=== PATIENT | female | born 1990 | race African-American/Black ===

== ENCOUNTER 2016-11-06 20:08 | Emergency (ER) | payer MEDICAID ==
[2016-11-06 20:52] VITALS: BP 101/61
--- NOTE | 2016-11-06 21:34 | UC ---
Complaint Female HPI - HPI Summary HPI Summary: Vulvar itching, burning, redness, swelling starting 2 days ago. Feels like yeast infections she has had in the past. Denies fever or abd pain. Was treated for chlamydia 3 weeks ago, partner also treated, but has had sex since then. Would like testing to confirm cure. Does not want a pelvic exam tonight if possible. - History Of Current Complaint Chief Complaint: UCGU Stated Complaint: POSS UTI & PERSONAL Time Seen by Provider: 11/06/16 21:21 Hx Obtained From: Patient Hx Last Menstrual Period: 11/01/16 ?: No Onset/Duration: Gradual Onset, Lasting Days Timing: Constant Severity Initially: Mild Severity Currently: Moderate Character: Burning Aggravating Factor(s): Movement, Urination Associated Signs And Symptoms: Positive: Vaginal Discharge - Allergies/Home Medications Allergies/Adverse Reactions: Allergies Allergy/AdvReac Type Severity Reaction Status Date / Time No Known Allergies Allergy Verified 11/06/16 20:52 PMH/Surg Hx/FS Hx/Imm Hx Endocrine History Of: Denies: Diabetes, Thyroid Disease Cardiovascular History Of: Denies: Cardiac Disorders, Hypertension Respiratory History Of: Denies: COPD, Asthma GI/ History Of: Denies: Ulcer Psychological History Of: Reports: Anxiety, Depression - Surgical History Surgical History: None - Family History Known Family History: Negative: Blood Disorder - Social History Alcohol Use: Occasionally Substance Use Type: None Smoking Status (MU): Light Every Day Tobacco Smoker Amount Used/How Often: 1/2ppd - Immunization History Most Recent Influenza Vaccination: 12/18/12 Most Recent Tetanus Shot: 12/31/12 Review of Systems Constitutional: Negative Skin: Negative Eyes: Negative ENT: Negative Respiratory: Negative Cardiovascular: Negative Gastrointestinal: Negative Genitourinary: Other - vulvar itching Motor: Negative Neurovascular: Negative Musculoskeletal: Negative Neurological: Negative Psychological: Negative All Other Systems Reviewed And Are Negative: Yes Physical Exam Triage Information Reviewed: Yes Appearance: Well-Appearing, No Pain Distress, Well-Nourished Vital Signs: Initial Vital Signs Temp 99.1 F 11/06/16 20:48 Pulse 85 11/06/16 20:48 Resp 16 11/06/16 20:48 BP 101/61 11/06/16 20:48 Pulse Ox 100 11/06/16 20:48 Vital Signs Reviewed: Yes Eye Exam: Normal Eyes: Positive: Conjunctiva Clear ENT Exam: Normal ENT: Positive: Normal ENT inspection, Hearing grossly normal, Pharynx normal, TMs normal Dental Exam: Normal Neck exam: Normal Neck: Positive: Supple, Nontender, No Lymphadenopathy Respiratory Exam: Normal Respiratory: Positive: Chest non-tender, Lungs clear, Normal breath sounds, No respiratory distress, No accessory muscle use Cardiovascular Exam: Normal Cardiovascular: Positive: RRR, No Murmur Abdomen Description: Positive: Nontender, No Organomegaly, Soft. Negative: CVA Tenderness (R), CVA Tenderness (L) Musculoskeletal Exam: Normal Neurological Exam: Normal Psychological Exam: Normal Skin Exam: Normal Complaint Female Dx - Differential Dx/Diagnosis Provider Diagnoses: vaginitis, likely yeast. chlamydia exposure Discharge - Discharge Plan Condition: Stable Disposition: HOME Prescriptions: Fluconazole 150 MG (NF) [Diflucan 150 mg (NF)] 150 mg PO ONCE #2 tab Patient Education Materials: Vulvovaginal Candidiasis (ED), Sexually Transmitted Diseases (ED) Referrals: Ade Jones MD [Primary Care Provider] -
== END 2016-11-06 21:55 | disposition home or self-care (01) ==
LOC: UCEAST 20:08
DX: N76.0 Acute vaginitis (principal); Z20.2 Contact with and (suspected) exposure to infections with a predominantly sexual mode of transmission; F41.9 Anxiety disorder, unspecified; F32.9 Major depressive disorder, single episode, unspecified; F17.210 Nicotine dependence, cigarettes, uncomplicated
CPT/HCPCS: 81003; 87491; 87591; 99211; G0463

== ENCOUNTER 2016-12-24 17:20 | Emergency (ER) | payer OTHER ==
[2016-12-24 19:25] LABS: Hematocrit 40 % (35-47); Hemoglobin 13.1 g/dl (12.0-16.0); Mean Corpuscular HGB Conc 33 g/dl (31-36); Mean Corpuscular Hemoglobin 30 pg (27-31); Mean Corpuscular Volume 90 fL (80-97); Mean Platelet Volume 9 um3 (7.4-10.4); Red Blood Count 4.41 10^6/ul (4.0-5.4); Red Cell Distribution Width 14 % (10.5-15); White Blood Count 9.4 10^3/ul (3.5-10.8)
[2016-12-24 19:41] LABS: Albumin 4.4 g/dL (3.2-5.2); Calcium 9.3 mg/dL (8.6-10.3); EGFR African American 129.1 (>60); EGFR Non-African American 100.4 (>60); Globulin 3.1 g/dL (2-4); Potassium 3.9 mmol/L (3.5-5.0); Total Bilirubin 0.3 mg/dL (0.2-1.0); Total Protein 7.5 g/dL (6.4-8.9)
[2016-12-24 20:29] LABS: Urine Bacteria Absent (Absent); Urine Bilirubin Negative (Negative); Urine Glucose Negative (Negative); Urine Nitrite Negative (Negative)
--- NOTE | 2016-12-24 20:59 | RAD ---
HISTORY: Vaginal bleeding in a pelvic female COMPARISONS: None TECHNIQUE: Multiple transverse and longitudinal ultrasound images were obtained of the pelvis using grayscale, color flow, spectral and M-mode sonographic imaging. FINDINGS: UTERUS: The uterus is normal in shape, size, contour, and echotexture. There is a small amount of fluid in the endometrial canal. GESTATION: There is no gestational sac or pole identified. CUL-DE-SAC: There is no free fluid within the cul-de-sac. RIGHT OVARY: The right ovary measures 1.8 x 1.9 x 2.7 cm. LEFT OVARY: The left ovary measures 2.7 x 2.9 x 2.2 cm. IMPRESSION: Nonvisualization of a pole or gestational sac. The sonographic findings could represent spontaneous , too early to identify or ectopic . Correlation to serial beta hCG is advised.
--- NOTE | 2016-12-24 21:13 | ED ---
- HPI Summary HPI Summary: 26F presents with vaginal bleeding for a day. Her LMP was November 24. She is . She states that she is soaking a pad every 4-5 hours and that there is small amount of clots. She states she is having cramp like pain in lower abdomen. She denies any dysuria, hematuria, frequency, urgency. She denies any chance she has an STD. She took a couple at home tests 5 days ago and they were positive. She denies any fever, n/v/d. - History of Current Complaint Chief Complaint: EDVaginalBleeding Stated Complaint: VAG BLEEDING,CRAMPING-PREG Time Seen by Provider: 12/24/16 18:21 Pain Intensity: 0 - Assessment Hx Now: No SAB: 0 - Additional Pertinent History Maternal Blood Type and Rh: A Positive - Allergies/Home Medications Allergies/Adverse Reactions: Allergies Allergy/AdvReac Type Severity Reaction Status Date / Time No Known Allergies Allergy Verified 11/06/16 20:52 PMH/Surg Hx/FS Hx/Imm Hx Endocrine/Hematology History: Denies: Hx Diabetes, Hx Thyroid Disease Cardiovascular History: Denies: Hx Hypertension Respiratory History: Denies: Hx Asthma, Hx Chronic Obstructive Pulmonary Disease (COPD) GI History: Denies: Hx Ulcer Psychiatric History: Reports: Hx Anxiety, Hx Depression Infectious Disease History: Denies: Hx Hepatitis, Hx Human Immunodeficiency Virus (HIV), Traveled Outside the [place] in Last 30 Days - Family History Known Family History: Negative: Blood Disorder - Social History Alcohol Use: Occasionally Hx Substance Use: No Substance Use Type: Reports: None Hx Tobacco Use: No Smoking Status (MU): Light Every Day Tobacco Smoker Amount Used/How Often: 1/2ppd Review of Systems Negative: Fever Negative: Chest Pain Negative: Shortness Of Breath Positive: Other - vaginal bleeding All Other Systems Reviewed And Are Negative: Yes Physical Exam - Physical Exam Triage Information Reviewed: Yes Vital Signs Reviewed: Yes Appearance: Positive: Well-Appearing Skin: Positive: Warm, Dry Head/Face: Positive: Normal Head/Face Inspection Eyes: Positive: Normal, Conjunctiva Clear ENT: Positive: Normal ENT inspection, Pharynx normal, TMs normal Respiratory/Lung Sounds: Positive: Clear to Auscultation, Breath Sounds Present Cardiovascular: Positive: Normal, RRR Abdomen Description: Positive: Nontender, Soft Bowel Sounds: Positive: Present Diagnostics - Vital Signs Vital Signs Temp Pulse Resp BP Pulse Ox 12/24/16 18:03 98.2 F 74 16 117/66 100 12/24/16 17:41 98.2 F 74 16 117/66 100 - Laboratory Lab Results: Lab Results 12/24/16 12/24/16 12/24/16 Range/Units 19:16 19:16 20:10 WBC 9.4 (3.5-10.8) 10^3/ul RBC 4.41 (4.0-5.4) 10^6/ul Hgb 13.1 (12.0-16.0) g/dl Hct 40 (35-47) % MCV 90 (80-97) fL MCH 30 (27-31) pg MCHC 33 (31-36) g/dl RDW 14 (10.5-15) % Plt Count 180 (150-450) 10^3/ul MPV 9 (7.4-10.4) um3 Neut % (Auto) 68.8 (38-83) % Lymph % (Auto) 22.8 L (25-47) % [place] % (Auto) 6.7 (1-9) % Eos % (Auto) 1.1 (0-6) % Baso % (Auto) 0.6 (0-2) % Absolute Neuts (auto) 6.5 (1.5-7.7) 10^3/ul Absolute Lymphs (auto) 2.1 (1.0-4.8) 10^3/ul Absolute Monos (auto) 0.6 (0-0.8) 10^3/ul Absolute Eos (auto) 0.1 (0-0.6) 10^3/ul Absolute Basos (auto) 0.1 (0-0.2) 10^3/ul Absolute Nucleated RBC 0 10^3/ul Nucleated RBC % 0 Sodium 136 (133-145) mmol/L Potassium 3.9 (3.5-5.0) mmol/L Chloride 104 (101-111) mmol/L Carbon Dioxide 27 (22-32) mmol/L Anion Gap 5 (2-11) mmol/L BUN 7 (6-24) mg/dL Creatinine 0.70 (0.51-0.95) mg/dL Est GFR ( Amer) 129.1 (>60) Est GFR (Non-Af Amer) 100.4 (>60) BUN/Creatinine Ratio 10.0 (8-20) Glucose 99 (70-100) mg/dL Calcium 9.3 (8.6-10.3) mg/dL Total Bilirubin 0.30 (0.2-1.0) mg/dL AST 19 (13-39) U/L ALT 16 (7-52) U/L Alkaline Phosphatase 30 L (34-104) U/L Total Protein 7.5 (6.4-8.9) g/dL Albumin 4.4 (3.2-5.2) g/dL Globulin 3.1 (2-4) g/dL Albumin/Globulin Ratio 1.4 (1-3) Beta HCG, Quant 42.41 mIU/mL Urine Color Straw Urine Appearance Clear Urine pH 7.0 (5-9) Ur Specific [place] 1.004 L (1.010-1.030) Urine Protein Negative (Negative) Urine Ketones Negative (Negative) Urine Blood 1+ H (Negative) Urine Nitrate Negative (Negative) Urine Bilirubin Negative (Negative) Urine Urobilinogen Negative (Negative) Ur Leukocyte Esterase Negative (Negative) Urine WBC (Auto) Absent (Absent) Urine RBC (Auto) Trace(0-2/hpf) (Absent) Urine Bacteria Absent (Absent) Urine Glucose Negative (Negative) Result Diagrams: 12/24/16 19:16 12/24/16 19:16 Lab Statement: Any lab studies that have been ordered have been reviewed, and results considered in the medical decision making process. - Ultrasound No standard instances Ultrasound Interpretation: Positive (See Comments) - IMPRESSION: Nonvisualization of a pole or gestational sac. The sonographic findings could represent spontaneous , too early to identify or ectopic . Correlation to serial beta hCG is advised. Ultrasound Interpretation Completed By: Radiologist Course/Dx - Course Course Of Treatment: 26F presents with vaginal bleeding for a day. LMP and had at home test positive. denies any UTI symptoms. has mild cramping. on exam abdomen nontender. H/H and u/a normal, HCG 42. u/s unable to see fetus this is likely due to low HCG. explained needs to follow up with OBGYN to trend levels as may be too early in or may be spontanous . patient understands and agrees with plan - Differential Diagnosis/HQI/PQRI: Spontaneous , Threatened , Intrauterine - Diagnoses Provider Diagnoses: Vaginal bleeding Discharge - Discharge Plan Condition: Good Disposition: HOME Patient Education Materials: Threatened Miscarriage (ED) Referrals: Ade Jones MD [Primary Care Provider] - Lyubov Nowak MD [Medical Doctor] - Additional Instructions: The education you were provided if for potentially a threatened . This may or may not occur You have to follow up with obgyn to trend your levels so call tomorrow for an appointment. Return to ED if develop any new or worsening symptoms
[2016-12-24 21:40] VITALS: BP 124/71
== END 2016-12-24 21:40 | disposition home or self-care (01) ==
LOC: ED 17:20
DX: O46.90 Antepartum hemorrhage, unspecified, unspecified trimester (principal); F17.210 Nicotine dependence, cigarettes, uncomplicated
CPT/HCPCS: 36415; 76817; 80053; 81003; 81015; 84702; 85025; 99281

== ENCOUNTER 2017-05-30 16:00 | Emergency (ER) | payer SELFPAY ==
[2017-05-30 16:17] VITALS: BP 119/70
--- NOTE | 2017-05-30 18:26 | UC ---
Jerod Martin Tiffany, scribed for Corey Carlisle MD on 05/30/17 at 1652 . Abdominal Pain Female HPI - HPI Summary HPI Summary: This patient is a 26 year old F presenting to [facility] accompanied by male with a chief complaint of waxing and waning abdominal cramping that worsened yesterday. The patient is 6 weeks . She has been having abdominal cramping throughout her . She reports that the pain is in the middle of her back and on her right side. The patient rates the pain 6/10 in severity. Symptoms aggravated by nothing. Symptoms alleviated by nothing. Patient denies vaginal discharge, vaginal bleeding, diarrhea and dysuria. Patient is A1. - History of Current Complaint Chief Complaint: UCAbdominalPain Stated Complaint: ABD PAIN,6 WEEKS PREG Time Seen by Provider: 05/30/17 16:34 Hx Obtained From: Patient Hx Last Menstrual Period: 04/21/17 ?: Yes Onset/Duration: Still Present, Worse Since - Today Pain Intensity: 6 Pain Scale Used: 0-10 Numeric Radiates: Yes Radiates to: Back, Flank - Right Aggravating Factor(s): Nothing Alleviating Factor(s): Nothing Associated Signs and Symptoms: Positive: Other: - mid-back pain, right flank pain; Negative vaginal discharge, vaginal bleeding, diarrhea and dysuria Allergies/Adverse Reactions: Allergies Allergy/AdvReac Type Severity Reaction Status Date / Time No Known Allergies Allergy Verified 05/30/17 17:57 Home Medications: Home Medications Ibuprofen TAB* [Advil TAB*] 4 tab PO PRN 05/30/17 [History] Vitamin [Calna] 1 tab PO DAILY 05/30/17 [History Confirmed 05/30/17] PMH/Surg Hx/FS Hx/Imm Hx Previously Healthy: No Other Cardiovascular History: NEGATIVE: A-fib Psychological History: Depression - Surgical History Surgical History: None - Family History Known Family History: Negative: Blood Disorder - Social History Alcohol Use: None Substance Use Type: None Smoking Status (MU): Light Every Day Tobacco Smoker Type: Cigarettes Amount Used/How Often: < 1/2 ppd Have You Smoked in the Last Year: Yes - Immunization History Most Recent Influenza Vaccination: 05/25 Most Recent Tetanus Shot: 12/31/12 Review of Systems Gastrointestinal: Negative - Diarrhea, Abdominal Pain Genitourinary: Negative - vaginal discharge, vaginal bleeding, dysuria. Musculoskeletal: Other: - Right flank pain, mid-back pain All Other Systems Reviewed And Are Negative: Yes Physical Exam Triage Information Reviewed: Yes Vital Signs: Initial Vital Signs Temp 98.8 F 05/30/17 16:10 Pulse 75 05/30/17 16:10 Resp 18 05/30/17 16:10 BP 119/70 05/30/17 16:10 Pulse Ox 100 05/30/17 16:10 Vital Signs Reviewed: Yes - Additional Comments General: well-appearing, no pain distress Skin: warm, color reflects adequate perfusion, dry Head: normal Eyes: EOMI, ASMITA ENT: normal Neck: supple, nontender Respiratory: CTA, breath sounds present Cardiovascular: RRR Abdomen: soft, nontender Bowel: present Musculoskeletal: normal, strength/ROM intact Neurological: normal, sensory/motor intact, A&O x3 Psychological: affect/mood appropriate Abd Pain Female Course/Dx - Course Course Of Treatment: Allergies noted. Medications reviewed. RECOMMENDED PATIENT GO TO THE EMERGENCY DEPARTMENT FOR FURTHER EVALUATION HERE WE DO NOT HAVE U/S AND LABS THAT WILL RESULT TODAY. PATIENT AGREES. DISCUSSED WITH LV IN THE ED. - Differential Dx/Diagnosis Provider Diagnoses: ABDOMINAL PAIN IN EARLY Discharge - Discharge Plan Condition: Stable Disposition: HOME Patient Education Materials: Abdominal Pain in (ED) Referrals: Ade Jones MD [Primary Care Provider] - Additional Instructions: GO DIRECTLY TO THE EMERGENCY DEPARTMENT FOR FURTHER EVALUATION OF YOUR LOWER ABDOMINAL PAIN IN EARLY . The documentation as recorded by the Jerod telles Tiffany accurately reflects the service I personally performed and the decisions made by me, Corey Carlisle MD.
== END 2017-05-30 16:55 | disposition home or self-care (01) ==
LOC: UCEAST 16:00
DX: O26.891 Other specified pregnancy related conditions, first trimester (principal); R10.9 Unspecified abdominal pain; Z3A.01 Less than 8 weeks gestation of pregnancy; Z72.0 Tobacco use
CPT/HCPCS: 81003; 84702; 99212; G0463

== ENCOUNTER 2017-05-30 17:46 | Emergency (ER) | payer SELFPAY ==
[2017-05-30 18:48] LABS: Hematocrit 38 % (35-47); Hemoglobin 12.7 g/dl (12.0-16.0); Mean Corpuscular HGB Conc 33 g/dl (31-36); Mean Corpuscular Hemoglobin 30 pg (27-31); Mean Corpuscular Volume 90 fL (80-97); Mean Platelet Volume 9 um3 (7.4-10.4); Red Blood Count 4.21 10^6/ul (4.0-5.4); Red Cell Distribution Width 13 % (10.5-15); White Blood Count 6.6 10^3/ul (3.5-10.8)
--- NOTE | 2017-05-30 18:54 | ED ---
- HPI Summary HPI Summary: 26F LMP apr 21 presents with increasing abdominal cramping. She denies any vaginal bleeding or discharge. She had a miscarriage in December for this year and is concerned she is having another one. She denies any dysuria, fever, hematuria, n/v/d/c. She states that she has had cramping for weeks but it is coming more constant. She admits to right side back pain. She denies any thing making the pain better or worst. She denies any recent illness. She is A+. - History of Current Complaint Chief Complaint: EDAbdEricin Stated Complaint: ABD PAIN/6 WKS PREG Time Seen by Provider: 05/30/17 17:58 Pain Intensity: 6 - Assessment Hx Now: Yes SAB: 0 - Additional Pertinent History Maternal Blood Type and Rh: A Positive - Allergies/Home Medications Allergies/Adverse Reactions: Allergies Allergy/AdvReac Type Severity Reaction Status Date / Time No Known Allergies Allergy Verified 05/30/17 17:57 PMH/Surg Hx/FS Hx/Imm Hx Endocrine/Hematology History: Denies: Hx Diabetes, Hx Thyroid Disease Cardiovascular History: Denies: Hx Hypertension Respiratory History: Denies: Hx Asthma, Hx Chronic Obstructive Pulmonary Disease (COPD) GI History: Denies: Hx Ulcer Psychiatric History: Reports: Hx Anxiety, Hx Depression Infectious Disease History: No Infectious Disease History: Denies: Hx Hepatitis, Hx Human Immunodeficiency Virus (HIV), History Other Infectious Disease, Traveled Outside the [place] in Last 30 Days - Family History Known Family History: Negative: Blood Disorder - Social History Alcohol Use: None Hx Substance Use: No Substance Use Type: Reports: None Hx Tobacco Use: No Smoking Status (MU): Light Every Day Tobacco Smoker Type: Cigarettes Amount Used/How Often: < 1/2 ppd Have You Smoked in the Last Year: Yes Review of Systems Negative: Fever Negative: Chest Pain Negative: Shortness Of Breath Positive: Abdominal Pain. Negative: Vomiting, Nausea All Other Systems Reviewed And Are Negative: Yes Physical Exam - Physical Exam Triage Information Reviewed: Yes Vital Signs Reviewed: Yes Appearance: Positive: Well-Appearing Skin: Positive: Warm, Dry Head/Face: Positive: Normal Head/Face Inspection Eyes: Positive: Normal, Conjunctiva Clear Respiratory/Lung Sounds: Positive: Clear to Auscultation, Breath Sounds Present Cardiovascular: Positive: Normal, RRR Abdomen Description: Positive: Nontender, Soft Bowel Sounds: Positive: Present Musculoskeletal: Positive: Normal Neurological: Positive: Normal Psychiatric: Positive: Normal Diagnostics - Vital Signs Vital Signs Temp Pulse Resp BP Pulse Ox 05/30/17 17:53 98.2 F 77 14 123/60 100 - Laboratory Lab Results: Lab Results 05/30/17 Range/Units 18:40 WBC 6.6 (3.5-10.8) 10^3/ul RBC 4.21 (4.0-5.4) 10^6/ul Hgb 12.7 (12.0-16.0) g/dl Hct 38 (35-47) % MCV 90 (80-97) fL MCH 30 (27-31) pg MCHC 33 (31-36) g/dl RDW 13 (10.5-15) % Plt Count 218 (150-450) 10^3/ul MPV 9 (7.4-10.4) um3 Neut % (Auto) 64.1 (38-83) % Lymph % (Auto) 27.1 (25-47) % [place] % (Auto) 7.5 (1-9) % Eos % (Auto) 0.9 (0-6) % Baso % (Auto) 0.4 (0-2) % Absolute Neuts (auto) 4.2 (1.5-7.7) 10^3/ul Absolute Lymphs (auto) 1.8 (1.0-4.8) 10^3/ul Absolute Monos (auto) 0.5 (0-0.8) 10^3/ul Absolute Eos (auto) 0.1 (0-0.6) 10^3/ul Absolute Basos (auto) 0 (0-0.2) 10^3/ul Absolute Nucleated RBC 0 10^3/ul Nucleated RBC % 0 Result Diagrams: 05/30/17 18:40 05/30/17 18:40 Lab Statement: Any lab studies that have been ordered have been reviewed, and results considered in the medical decision making process. - Ultrasound No standard instances Ultrasound Interpretation: Positive (See Comments) - 1. Single live intrauterine gestation with a crown-rump length yielding a gestational age of 6 weeks and 0 days. 2. There is a small subchorionic hemorrhage measuring 1.2 x 1.2 x 0.4 cm. Ultrasound Interpretation Completed By: Radiologist Course/Dx - Course Course Of Treatment: 26F LMP apr 21 presents with increasing abdominal cramping. She denies any vaginal bleeding or discharge. She had a miscarriage in December for this year and is concerned she is having another one. She denies any dysuria, fever, hematuria, n/v/d/c. She states that she has had cramping for weeks but it is coming more constant. She admits to right side back pain. She denies any thing making the pain better or worst. She denies any recent illness. She is A+. on exam abdomen soft nontender. labs WNL. hcg [id number]. u/s shows single live intrauterine prenancy and subchorioninc hemorrhage. will have patient follow up with obgyn for continued care. patient understand and agrees with plan. - Differential Diagnosis/HQI/PQRI: Threatened , Ectopic , Intrauterine - Diagnoses Provider Diagnoses: Abdominal pain during Discharge - Discharge Plan Condition: Good Disposition: HOME Patient Education Materials: (ED) Referrals: Ade Jones MD [Primary Care Provider] - Juan Junior MD [Medical Doctor] - Additional Instructions: Take Tylenol every 6 hours for pain Follow up with OBGYN Return to ED if develop severe abdominal pain, fever, severe bleeding with symptoms such as lightheadedness or any new or worsening symptoms
[2017-05-30 19:00] LABS: Urine Bilirubin Negative (Negative); Urine Glucose Negative (Negative); Urine Nitrite Negative (Negative)
[2017-05-30 19:03] LABS: Albumin 4.1 g/dL (3.2-5.2); BUN/Creatinine Ratio 13.1 (8-20); EGFR African American 151.3 (>60); EGFR Non-African American 117.7 (>60); Globulin 2.9 g/dL (2-4); Potassium 3.7 mmol/L (3.5-5.0); Total Bilirubin 0.3 mg/dL (0.2-1.0)
--- NOTE | 2017-05-30 20:19 | RAD ---
HISTORY: Cramping. Last menstrual period April 21, 2017 corresponding to a gestational age of 5 weeks and 4 days. COMPARISONS: None from this . TECHNIQUE: Multiple transverse and longitudinal ultrasound images were obtained of the pelvis using grayscale, color flow, spectral and M-mode sonographic imaging. FINDINGS: UTERUS: The uterus is normal in shape, size, contour, and echotexture. GESTATION: There is a single live intrauterine gestation. The crown-rump length measures 0.3 cm yielding a gestational age of 6 weeks and 0 days. The mean gestational sac diameter measures 1.24 centimeters yielding a gestational age of 6 weeks and 0 days. External to the gestational sac there is an anechoic and avascular fluid collection measuring 1.2 x 1.2 x 0.4 cm. cardiac motion is detected at a rate of 121 beats per minute. CUL-DE-SAC: There is no free fluid within the cul-de-sac. RIGHT OVARY: The right ovary measures 2.1 x 1.3 x 1.3 cm. Hypoechoic peripherally vascular structure in the left ovary measuring 1.8 cm tic represents the corpus luteum. LEFT OVARY: The left ovary measures 2.6 x 2.1 x 1.9 cm. IMPRESSION: 1. Single live intrauterine gestation with a crown-rump length yielding a gestational age of 6 weeks and 0 days. 2. There is a small subchorionic hemorrhage measuring 1.2 x 1.2 x 0.4 cm.
[2017-05-30 20:38] VITALS: BP 119/61
== END 2017-05-30 20:38 | disposition home or self-care (01) ==
LOC: ED 17:46
DX: O26.891 Other specified pregnancy related conditions, first trimester (principal); Z3A.01 Less than 8 weeks gestation of pregnancy; R10.9 Unspecified abdominal pain; F17.210 Nicotine dependence, cigarettes, uncomplicated
CPT/HCPCS: 36415; 76817; 80053; 81003; 84702; 85025; 85610; 85730; 99282

== ENCOUNTER 2018-01-19 08:20 | Inpatient (IN) | payer OTHER ==
[2018-01-19 09:56] LABS: ABS Basophils 0 10^3/ul (0-0.2); ABS Eosinophils 0.1 10^3/ul (0-0.6); ABS Lymphocytes 2.2 10^3/ul (1.0-4.8); ABS Monocytes 1.1 10^3/ul (0-0.8); ABS Neutrophils 6.2 10^3/ul (1.5-7.7); ABS Nucleated RBC 0 10^3/ul; Hematocrit 37 % (35-47); Hemoglobin 11.8 g/dl (12.0-16.0); Lymphocyte % 22.9 % (25-47); Mean Corpuscular HGB Conc 32 g/dl (31-36); Mean Corpuscular Hemoglobin 29 pg (27-31); Mean Corpuscular Volume 91 fL (80-97); Mean Platelet Volume 10.8 um3 (7.4-10.4); Nucleated Red Blood Cells % 0.1; Platelet Count 149 10^3/ul (150-450); Red Blood Count 4.02 10^6/ul (4.00-5.40); Red Cell Distribution Width 15 % (10.5-15); White Blood Count 9.7 10^3/ul (3.5-10.8)
[2018-01-19] MEDS ORDERED: Oxytocin in LR* 20 UNITS/1,000 ML BAG IVPB ONE (10:31)
--- NOTE | 2018-01-19 10:59 | HP ---
General Information - General Information Maternal Age: 27 Grav: 4 Para: 2 SAB: 1 IEA: 0 Estimated Due Date: 01/26/18 Determined By: LMP Maternal Blood Type and Rh: A Positive - Results this Serology/RPR Result: Non-Reactive Rubella Result: Immune HBsAg Result: Negative HIV Result: Negative GBS Culture Result: Negative Past Medical History Delivery History: See Records Pertinent Past Medical History: See Records Pertinent Past Surgical History: See Records Pertinent Family History: Non-Contributory - Antepartal Records Antepartal Records: Reviewed, Complicated by: - unstable lie. baby transverse today Review of Systems Constitutional: Comfortable Genitourinary: No Bleeding, No Leaking Fluid Musculoskeletal: Back Pain Movement: Normal Exam Allergies/Adverse Reactions: Allergies No Known Allergies Allergy (Verified 05/30/17 17:57) Lab Values - Entire Visit: Laboratory Tests 01/19/18 09:20 WBC 9.7 RBC 4.02 Hgb 11.8 L Hct 37 MCV 91 MCH 29 MCHC 32 RDW 15 Plt Count 149 L MPV 10.8 H Neut % (Auto) 64.3 Lymph % (Auto) 22.9 L [place] % (Auto) 11.4 H Eos % (Auto) 1.0 Baso % (Auto) 0.4 Absolute Neuts (auto) 6.2 Absolute Lymphs (auto) 2.2 Absolute Monos (auto) 1.1 H Absolute Eos (auto) 0.1 Absolute Basos (auto) 0 Absolute Nucleated RBC 0 Nucleated RBC % 0.1 - Measurements Height: 5 ft 2 in Weight: 164 lb Weight in lbs: [id number] Body Mass Index (BMI): 29.9 Pre- Weight: 126 lb Weight Gained This : 38 lbs and 0 ozs - Exam CVA: No CVA Tenderness Extremities: No Edema Heart: Normal Rhythm/Heart Sounds HEENT: No Significant Findings Lungs: Clear Bilaterally Reflexes: DTR 2+ Targeted Exam Findings See L&D Outpatient Visit Provider Note for Findings: N/A Presenting Part: Breech EFM Findings - External Monitor Findings Baseline Heart Rate: 145 External Monitor Findings: Accelerations Present Contractions: Irregular, Mild, < 45 Seconds Assessment/Plan - Assessment present breech today / transverse unstable lie/ as planned external version today with success pt tolerated well and are trying oxytocin induction to provide tone and attempt at vaginal delivery Ongoing discussion with pt and family regarding risks and benefits and alternatives - Obstetrical Risk Factors Obstetrical Risk Factors: Breech - now verted to vertex but concern over unstable lie - Plan Plan: Induction
[2018-01-19] MEDS ORDERED: Oxytocin in LR* 20 UNITS/1,000 ML BAG IVPB SCH (11:00)
--- NOTE | 2018-01-19 13:01 | PN ---
Progress Note - Progress Note Date of Service: 01/19/18 SOAP: Subjective: [Feels contractions are somewhat stronger. [place] baby moving a lot and concerned she had turned head up again.] Objective: [VSS, afebrile Pit @ 7. UCs difficult to trace with belly binder, approx Q 4-6 min FHT 135, +accels, no decels, mod variability] Assessment: [Per sono baby is still vertex but out of pelvis. VE 1cm/50%/OOP] Plan: [Continue pitocin with monitoring per protocol, assess as needed]
--- NOTE | 2018-01-19 18:16 | PN ---
Progress Note - Progress Note Date of Service: 01/19/18 SOAP: Pt feeling contractions though they are still mild/moderate. UCs somewhat difficult to trace but approx Q 2-3 min. FHR 130, +accels, no decels, mod joni. Discussed a "Spinning Babies" move called Abdominal Lift and Tuck to try to engage baby and patient willing to try. Belly held through 10 UCs with a pelvic tilt at the same time. Continue to monitor, patient plans to eat dinner and may consider tub for comfort later.
--- NOTE | 2018-01-19 20:36 | PN ---
Progress Note - Progress Note Date of Service: 01/19/18 SOAP: Subjective: [Pt feels contractions are a little stronger. She would like to consider a pitocin break and may want to do IV pain medication if pain is worsening because she is very tired.] Objective: [Pit @ 21 UCs q 2-4 with periods of q 3-5 VE 1cm/60%/OOP FHR 135, +accels, no decels, mod variability Baby vertex but still floating out of pelvis by bedside sono] Assessment: [Abdominal lift and pelvic tilt not successful at moving fetus into pelvis at this time.] Plan: [Pt desires break from pitocin. PARQ discussion of cervidil overnight vs resting with no medications; pt undecided as of now. Keep abdominal binder in place as long as tolerated. Reasses as needed]
[2018-01-19] MEDS ORDERED: Docusate CAP* 100 MG PO PRN (21:36)
[2018-01-19] MEDS ORDERED: Dinoprostone* 10 MG VAG.SUPP VAGINAL ONE (21:47)
[2018-01-20] MEDS ORDERED: Nalbuphine* 10 MG/ML 1 ML VIAL IV PRN (01:42)
[2018-01-20] MEDS ORDERED: Promethazine INJ(RESTRICTED)* 25 MG/ML 1 ML VIAL IV PRN (01:42)
--- NOTE | 2018-01-20 01:54 | PN ---
Progress Note - Progress Note Date of Service: 01/20/18 SOAP: Subjective: [Contractions had slowed, no slightly stronger, patient feeling more pressure. Also concerned about "what will happen if this doesn't work". ] Objective: [Cervidil placed 01/19/18 @ ~2300 VSS, afebrile UCs q 2-6 min FHT 135 Cat 1 position palpated as same, sono deferred for now] Assessment: [Contractions] Plan: [Patient desires IV narcotic pain medication. Reviewed usage, risks/benefits. Discussed plan going forward to continue to encourage baby's engagement by inducing contractions/uterine tone.]
[2018-01-20] MEDS ORDERED: Lidocaine 1%* 5 ML VIAL ONE (02:23)
--- NOTE | 2018-01-20 08:03 | PN ---
Progress Note - Progress Note Date of Service: 01/20/18 SOAP: Pt slept a little after requesting cervidil removed @ approx 0600 d/t concerns for vaginal irritation and painful, freq contractions. Contractions have slowed since then and she is unable to say whether she is currently having any. Discussed plan of care briefly but will defer to oncoming Payam NESBITT. Report given to LAZ.
--- NOTE | 2018-01-21 07:32 | PN ---
Progress Note - Progress Note Date of Service: 01/20/18 SOAP: Subjective: [Pt reports feeling mild intermittent contractions. After bedside sono showed baby in breech position again, she is understandably upset and frustrated. Otherwise feels well. Reports active FM. ] Objective: [FHR tracing Cat I Bedside sono by Dr. Junior shows breech position mild, irregular UC's Vital signs stable] Assessment: [27 year old at 39 1/7 weeks gestation with unstable lie No evidence of acidemia] Plan: [Pt offered the option to have today versus discharge home and returning for scheduled later in week. She opted to schedule later in the week. scheduled for 01/24/18. Pt counseled to call immediately with ROM, signs of labor. ]
== END 2018-01-20 09:50 | disposition home or self-care (01) | DRG 566 ==
LOC: MCHOBOUT 08:20 → MCHOB 09:13
PROVIDERS: ADMIT Obstetrics & Gynecology; ATTEND Midwife
PROC: 3E033VJ Introduction of Other Hormone into Peripheral Vein, Percutaneous Approach (ICD-10-PCS; principal; 2018-01-19)
DX: O32.1XX0 Maternal care for breech presentation, not applicable or unspecified (principal); O62.0 Primary inadequate contractions; Z3A.39 39 weeks gestation of pregnancy
CPT/HCPCS: 36415; 85025; 86850; 86900; 86901; A9270-GY; J2300; J2550

== ENCOUNTER 2018-01-24 05:08 | Inpatient (IN) | payer OTHER ==
[~2018-01-24 05:08] MED LIST: Buffered Lidocaine 0.9% SYRIN* 5 ML/SYR SYRINGE INTRADERM ONE
[2018-01-24] MEDS ORDERED: Sodium Citrate/Citric Acid* 15 ML UDC PO ONE (06:00)
[2018-01-24] MEDS ORDERED: Famotidine IV* 10 MG/ML 2 ML (20 mg) IV ONE (06:00)
[2018-01-24] MEDS ORDERED: ceFOXitin 2 GM IVPREMIX* 4 GM/100 ML BAG ONE (06:13)
[2018-01-24] MEDS ORDERED: Lidocaine 2.5%/Prilocain 2.5%* 5 GM TUBE ONE (06:30)
[2018-01-24] MEDS ORDERED: Lidocaine 2% EPI 1:200000 MPF*10-20 ML VIAL ONE (07:05)
[2018-01-24] MEDS ORDERED: Lidocaine 2% PF* 10 ML AMP ONE (07:06)
[2018-01-24] MEDS ORDERED: Phenylephrine INJ* 10 MG/ML 1 ML VIAL (10 MG) ONE (07:35)
[2018-01-24] MEDS ORDERED: Dexamethasone IV* 4 MG/ML 1 ML (4 MG) ONE (07:35)
[2018-01-24] MEDS ORDERED: OXYTOCIN* 10 UNITS/ML 1 ML VIAL ONE ×2 (07:35→08:52)
[2018-01-24] MEDS ORDERED: Ondansetron INJ* 2 MG/ML VIAL ONE ×2 (07:35→08:51)
[2018-01-24] MEDS ORDERED: Morphine PF AMP (0.5MG/ML)* 5 MG/10 ML AMP ONE (07:59)
[2018-01-24] MEDS ORDERED: Ketorolac INJ* 30 MG/ML 1 ML VIAL IV PRN (08:33)
[2018-01-24] MEDS ORDERED: Nalbuphine* 10 MG/ML 1 ML VIAL IV PRN (08:33)
[2018-01-24] MEDS ORDERED: fentaNYL* 50 MCG/ML 2 ML VIAL (100 MCG VIAL) IV PRN (08:33)
[2018-01-24] MEDS ORDERED: Naloxone* 0.4 MG/ML 1 ML VIAL IV PRN ×2 (08:33)
[2018-01-24] MEDS ORDERED: oxyCODONE/Acetamin 5/325 MG* TAB PO PRN ×2 (08:33)
[2018-01-24] MEDS ORDERED: Ondansetron INJ* 2 MG/ML VIAL IV PRN (08:33)
[2018-01-24] MEDS ORDERED: Glycopyrrolate IV* 0.2 MG/ML 1 ML VIAL ONE (09:00)
[2018-01-24] MEDS ORDERED: Glycerin ADULT SUPP PR PRN (09:49)
[2018-01-24] MEDS ORDERED: Witch Hazel PAD* JAR TOPICAL PRN (09:49)
[2018-01-24] MEDS ORDERED: Dibucaine 1% 28.35 GM TUBE PR PRN (09:49)
[2018-01-24] MEDS ORDERED: Oxytocin in LR* 20 UNITS/1,000 ML BAG IVPB SCH (10:00)
[2018-01-24] MEDS: DiMENhydriNATE IV* 50 MG/ML VIAL IV PUSH PRN ×2 (12:02→21:50)
[2018-01-24] MEDS: Ibuprofen TAB* 600 MG PO SCH ×2 (13:26→20:44)
[2018-01-24] MEDS: Docusate CAP* 100 MG PO SCH ×3 (15:54→20:43)
[2018-01-24] MEDS: Simethicone TAB* 80 MG TAB.CHEW PO SCH ×2 (15:54→20:44)
[2018-01-24] MEDS: Acetaminophen TAB* 325 MG PO PRN (16:43)
[2018-01-25] MEDS ORDERED: oxyCODONE/Acetamin 5/325 MG* TAB PO PRN
[2018-01-25] MEDS: oxyCODONE/Acetamin 5/325 MG* TAB PO PRN ×4 (01:03→22:31)
[2018-01-25] MEDS: Ibuprofen TAB* 600 MG PO PRN ×3 (04:19→23:34)
[2018-01-25 06:43] LABS: ABS Basophils 0 10^3/ul (0-0.2); ABS Eosinophils 0 10^3/ul (0-0.6); ABS Lymphocytes 1.8 10^3/ul (1.0-4.8); ABS Neutrophils 9.3 10^3/ul (1.5-7.7); ABS Nucleated RBC 0 10^3/ul; Eosinophil % 0.4 % (0-6); Hematocrit 29 % (35-47); Hemoglobin 9.7 g/dl (12.0-16.0); Lymphocyte % 14.6 % (25-47); Mean Corpuscular HGB Conc 34 g/dl (31-36); Mean Corpuscular Hemoglobin 30 pg (27-31); Mean Corpuscular Volume 88 fL (80-97); Nucleated Red Blood Cells % 0; Platelet Count 142 10^3/ul (150-450); Red Blood Count 3.29 10^6/ul (4.00-5.40); Red Cell Distribution Width 15 % (10.5-15); White Blood Count 12.2 10^3/ul (3.5-10.8)
[2018-01-25] MEDS: Acetaminophen TAB* 325 MG PO PRN ×2 (09:08→17:26)
[2018-01-25] MEDS: Simethicone TAB* 80 MG TAB.CHEW PO SCH ×4 (09:09→20:06)
[2018-01-25] MEDS: Ferrous Gluconate TAB* 324 MG TAB PO SCH ×2 (09:09→20:06)
[2018-01-25] MEDS: Ibuprofen TAB* 600 MG PO SCH (11:24)
--- NOTE | 2018-01-25 11:35 | OP ---
DATE OF OPERATION: 01/24/18 - ROOM #101 DATE OF : 88 SURGEON: Johana Davidson MD ASSISTANTS: 1. Juan Junior MD 2. Bita Thompson CNM ANESTHESIOLOGIST: [place] Mccain MD ANESTHESIA: Spinal. PRE-OP DIAGNOSIS: Malpresentation, unstable lie at 39 and 5/7th. POST-OP DIAGNOSIS: Malpresentation, unstable lie at 39 and 5/7th, delivered. OPERATIVE PROCEDURE: Primary low transverse section. ESTIMATED BLOOD LOSS: 600 cc. URINE OUTPUT: 300 cc of clear yellow urine. FLUIDS: 2300 cc of crystalloid. FINDINGS: Revealed a female , Apgars 8 and 9, weight was 6 pounds 10 ounces, presenting part was right shoulder and cord. Placenta was small but normal appearance, 3-vessel cord manually extracted and intact. Lower uterine segment completely undeveloped with the head wedged in the right mid quadrant of the uterus. Normal-appearing tubes and ovaries bilaterally. Uterine cavity noted to be free of any placenta or membranes after delivery. No intra- cavitary fibroids, masses, excrescences or synechiae appreciated. Large anterior wall diastasis. COMPLICATIONS: None apparent. DISPOSITION: Stable to recovery room. DESCRIPTION OF PROCEDURE: The patient was placed in dorsal lithotomy position. Abdomen was prepped and draped in a sterile standard fashion. A traxi was used to give some substance to the anterior abdominal wall and retract the anterior abdominal wall secondary to large diastasis. Anesthesia was tested to appropriate level. The patient was identified with the universal protocol for correct position, patient, and procedure. Incision was made two fingerbreadths above the pubic symphysis. This was carried down with scalpel. Fascia was scored in the midline. Fascial incision was extended laterally and superiorly using Gtz scissors. Peritoneum was then entered bluntly. The peritoneal incision was extended bluntly. Bladder blade was inserted. The uterus was inspected. There was zero development of the lower uterine segment. The mid portion of the uterus was developed and given the malpresentation, the decision was made to make an incision in the mid uterine section in a transverse fashion as this was the most developed portion of the uterus secondary to malpresentation. Incision was made with scalpel. This was carried down through to membranes. Uterine incision was extended laterally and superiorly using bandage scissors. Amniotomy was noted for clear fluid. Through internal manipulation, the head was maneuvered to vertex position and the was delivered through the hysterotomy site. Anterior and posterior shoulder delivered. Cord blood was milked and then allowed to pulse for 60 seconds before clamping, the was then handed off to awaiting sink maker. The baby was noted to be vigorous and crying at the field. Cord blood was obtained. Placenta was then manually extracted. The uterine cavity was explored, noted to be free of any membranes or placental tissue or masses or synechiae or septum that would explain the malpresentation. The uterus was exteriorized, wrapped with moist laparotomy sponge and the incision was clamped with broad Allis and then reapproximated in 2 layers, first layer running 0 locked Vicryl, second layer running imbricated 0 Vicryl. There were several areas along the incisional site requiring [id number] suture for complete hemostasis of the hysterotomy site. Tubes and ovaries were noted to have a normal appearance. The uterus was returned intra-abdominally. Colic gutters were lavaged. Hemostasis assured. The hysterotomy site was revisualized and noted to be hemostatic. The peritoneum was then grasped with Mariola's and reapproximated using 3-0 Vicryl in a running fashion. The subfascial area was lavaged and noted to be hemostatic and the fascia was then reapproximated using 0 Vicryl x2. The subcu was lavaged and hemostasis was assured with Bovie coagulation and the skin was reapproximated using 4-0 Monocryl x1. Mastisol and Steris were applied. Please note given that the incision was not a low transverse incision, it was a mid uterine transverse incision, the patient was counseled to never attempt a vaginal after section. Given the location of the scar, it was below the round ligament, however, it definitely was not lower uterine segment, it was more mid uterus. The patient is aware of this and also is aware of the likelihood of repeat malpresentation, which is unexplained to date. [id number]/CPS #: [id number] MTDD
[2018-01-25] MEDS: Docusate CAP* 100 MG PO SCH ×2 (12:46→20:06)
[2018-01-26] MEDS: oxyCODONE/Acetamin 5/325 MG* TAB PO PRN ×6 (04:17→23:04)
[2018-01-26] MEDS: Docusate CAP* 100 MG PO SCH ×4 (07:09→19:16)
[2018-01-26] MEDS: Simethicone TAB* 80 MG TAB.CHEW PO SCH ×6 (07:09→19:16)
[2018-01-26] MEDS: Ferrous Gluconate TAB* 324 MG TAB PO SCH ×2 (08:08→19:16)
[2018-01-26] MEDS: Ibuprofen TAB* 600 MG PO PRN ×3 (08:13→20:00)
[2018-01-27] MEDS: Ibuprofen TAB* 600 MG PO PRN ×2 (03:04→10:36)
[2018-01-27] MEDS: oxyCODONE/Acetamin 5/325 MG* TAB PO PRN ×2 (06:14→11:54)
[2018-01-27] MEDS: Ferrous Gluconate TAB* 324 MG TAB PO SCH (08:01)
[2018-01-27] MEDS: Simethicone TAB* 80 MG TAB.CHEW PO SCH (08:02)
[2018-01-27] MEDS: Docusate CAP* 100 MG PO SCH (08:02)
[2018-01-27 08:30] VITALS: BP 121/65
[2018-01-27] MEDS: Acetaminophen TAB* 325 MG PO PRN (10:36)
== END 2018-01-27 13:30 | disposition home or self-care (01) | DRG 540 ==
LOC: UNDOADMIN 05:08 → MCHOB 05:08
PROVIDERS: ADMIT Obstetrics & Gynecology; ATTEND Obstetrics & Gynecology
PROC: 10D00Z1 Extraction of Products of Conception, Low, Open Approach (ICD-10-PCS; 2018-01-24)
PROC: 4A1HXCZ Monitoring of Products of Conception, Cardiac Rate, External Approach (ICD-10-PCS; 2018-01-24)
PROC: 3E033VJ Introduction of Other Hormone into Peripheral Vein, Percutaneous Approach (ICD-10-PCS; principal; 2018-01-24 07:45)
DX: O32.0XX0 Maternal care for unstable lie, not applicable or unspecified (principal); Z3A.39 39 weeks gestation of pregnancy; Z37.0 Single live birth; O90.81 Anemia of the puerperium; Z83.2 Family history of diseases of the blood and blood-forming organs and certain disorders involving the immune mechanism; Z82.5 Family history of asthma and other chronic lower respiratory diseases; Z82.0 Family history of epilepsy and other diseases of the nervous system; Z82.49 Family history of ischemic heart disease and other diseases of the circulatory system; Z83.3 Family history of diabetes mellitus; O32.1XX0 Maternal care for breech presentation, not applicable or unspecified
CPT/HCPCS: 36415; 85025; 88307; A9270-GY; J0694; J1100; J1240; J2001; J2300; J2405; J2590

== ENCOUNTER 2018-03-03 12:36 | Emergency (ER) | payer OTHER ==
--- NOTE | 2018-03-03 14:33 | ED ---
GI/ HPI - HPI Summary HPI Summary: This patient is a 27 year old F presenting to ED with a chief complaint of vaginal bleeding with abdominal cramping consistent with her period since . Patient is 5 weeks. She is having her first period after giving and is bleeding much heavier than she ever has; 12 pads per day, no clots. The patient rates the pain 0/10 in severity. Symptoms aggravated by nothing. Symptoms alleviated by nothing. Patient reports fatigue and denies light-headedness. Dr. Davidson delivered her baby via . This is her 3rd baby and has not had an episode similar to this with her first [address] Davidson who said to wait till Sunday or come into the ED. - History of Current Complaint Chief Complaint: EDVaginalBleeding Time Seen by Provider: 03/03/18 14:21 Stated Complaint: VAGINAL BLEEDING Hx Obtained From: Patient Hx Last Menstrual Period: 04/21/17 Onset/Duration: Started Days Ago - 02/28/18, Still Present Timing: Constant, Lasting Days Current Severity: None Number of Pads per Day: 12 Pain Intensity: 0 Pain Characteristics: Cramping Associated Signs and Symptoms: Positive: Other: - Patient reports fatigue and denies light-headedness. Additional Signs & Symptoms: Positive: Other: - Patient reports fatigue and denies light-headedness. - Allergy/Home Medications Allergies/Adverse Reactions: Allergies Allergy/AdvReac Type Severity Reaction Status Date / Time No Known Allergies Allergy Verified 03/03/18 12:55 PMH/Surg Hx/FS Hx/Imm Hx Endocrine/Hematology History: Denies: Hx Diabetes, Hx Thyroid Disease Cardiovascular History: Denies: Hx Hypertension Respiratory History: Denies: Hx Asthma, Hx Chronic Obstructive Pulmonary Disease (COPD) GI History: Denies: Hx Ulcer Psychiatric History: Reports: Hx Anxiety, Hx Depression Infectious Disease History: No Infectious Disease History: Denies: Hx Hepatitis, Hx Human Immunodeficiency Virus (HIV), History Other Infectious Disease, Traveled Outside the [place] in Last 30 Days - Family History Known Family History: Negative: Blood Disorder - Social History Alcohol Use: None Hx Substance Use: No Substance Use Type: Reports: None Hx Tobacco Use: No Smoking Status (MU): Former Smoker Type: Cigarettes Amount Used/How Often: <1/2ppd Have You Smoked in the Last Year: Yes Review of Systems Positive: Fatigue Positive: Abdominal Pain - cramping consistent with her period Positive: other - vaginal bleeding Neurological: Other - denies light-headedness All Other Systems Reviewed And Are Negative: Yes Physical Exam - Summary Physical Exam Summary: GENERAL: Patient is a well-developed and nourished F who is lying comfortable in the stretcher. Patient is not in any acute respiratory distress. HEAD AND FACE: Normocephalic EYES: PERRLA, EOMI x 2. EARS: Hearing grossly intact. MOUTH: Oropharynx within normal limits. NECK: Supple, trachea is midline, no adenopathy, no JVD, no carotid bruit. CHEST: Symmetric, no tenderness at palpation LUNGS: Clear to auscultation bilaterally. No wheezing or crackles. CVS: Regular rate and rhythm, S1 and S2 present, no murmurs or gallops appreciated. ABDOMEN: Soft, non-tender. Bowel sounds are normal. No abdominal abnormal pulsations. A bit distended consistent with . EXTREMITIES: Full ROM in all major joints, no edema, no cyanosis or clubbing. NEURO: Alert and oriented x 3. No acute neurological deficits. Speech is normal and follows commands. SKIN: Dry and warm Triage Information Reviewed: Yes Vital Signs On Initial Exam: Initial Vitals Temp Pulse Resp BP Pulse Ox 97.8 F 70 15 122/71 98 03/03/18 12:55 03/03/18 12:55 03/03/18 12:55 03/03/18 12:55 03/03/18 12:55 Vital Signs Reviewed: Yes Diagnostics - Vital Signs Vital Signs Temp Pulse Resp BP Pulse Ox 03/03/18 12:55 97.8 F 70 15 122/71 98 - Laboratory Result Diagrams: 03/03/18 15:00 Lab Statement: Any lab studies that have been ordered have been reviewed, and results considered in the medical decision making process. Re-Evaluation - Re-Evaluation First Eval Re-Evaluation Time: 15:15 Comment: Discussed with the patient about consult with Dr. Davidson. I offered for her to go home with progesterone pill but she declined. The patient will wait off on taking BCP and will wait to follow up with her [facility] on Sunday. GIGU Course/Dx - Course Assessment/Plan: This patient is a 27 year old F presenting to ED with a chief complaint of vaginal bleeding with abdominal cramping consistent with her period since 02/28/18. Consulted Dr. Davidson about the patient who says I could choose to send her home on BCP, but talk to her that because she is , the estrogen can decrease the breast milk supply. Discussed with the patient about consult with Dr. Davidson. I offered for her to go home with progesterone pill but she declined. Patients H+H is normal. The patient will wait off on taking BCP and will wait to follow up with her [facility] on Sunday. The patient is hemodynamically stable upon discharge. Strict return precautions given. - Diagnoses Provider Diagnoses: Vaginal bleeding - Physician Notifications Discussed Care Of Patient With: Johana Davidson Time Discussed With Above Provider: 15:13 Instructed by Provider To: Other - Consulted Dr. Davidson about the patient who says I could choose to send her home on BCP, but talk to her that because she is , the estrogen can decrease the breast milk supply. Discharge - Sign-Out/Discharge Documenting (check all that apply): Patient Departure - Discharge Plan Condition: Stable Disposition: HOME Patient Education Materials: Bleeding (ED) Referrals: Johana Davidson MD [Medical Doctor] - (Follow up with Dr. Davidson on Sunday.) Additional Instructions: Follow up with Dr. Davidson tomorrow, Sunday. RETURN TO THE EMERGENCY DEPARTMENT FOR CHANGING OR WORSENING SYMPTOMS. - Billing Disposition and Condition Condition: STABLE Disposition: Home - Attestation Statements Document Initiated by Norbertoibe: Yes Documenting Scribe: Jb Langston Provider For Whom Ryleee is Documenting (Include Credential): Tyree Loredo MD Scribe Attestation: I, Jb Langston, scribed for Tyree Loredo MD on 03/04/18 at 1011. Scribe Documentation Reviewed: Yes Provider Attestation: The documentation as recorded by the Jb telles accurately reflects the service I personally performed and the decisions made by me, Tyree Loredo MD
[2018-03-03 15:07] LABS: ABS Basophils 0 10^3/ul (0-0.2); ABS Eosinophils 0.1 10^3/ul (0-0.6); ABS Lymphocytes 2.2 10^3/ul (1.0-4.8); ABS Monocytes 0.4 10^3/ul (0-0.8); ABS Neutrophils 2.9 10^3/ul (1.5-7.7); ABS Nucleated RBC 0 10^3/ul; Eosinophil % 1.4 % (0-6); Hematocrit 36 % (35-47); Lymphocyte % 39.8 % (25-47); Mean Corpuscular HGB Conc 33 g/dl (31-36); Mean Corpuscular Hemoglobin 29 pg (27-31); Mean Corpuscular Volume 87 fL (80-97); Mean Platelet Volume 8.6 um3 (7.4-10.4); Nucleated Red Blood Cells % 0.1; Platelet Count 184 10^3/ul (150-450); Red Blood Count 4.15 10^6/ul (4.00-5.40); Red Cell Distribution Width 15 % (10.5-15); White Blood Count 5.6 10^3/ul (3.5-10.8)
[2018-03-03 15:18] LABS: INR 1.14 (0.77-1.02)
[2018-03-03 15:49] VITALS: BP 125/80
== END 2018-03-03 15:47 | disposition home or self-care (01) ==
LOC: ED 12:36
DX: N93.9 Abnormal uterine and vaginal bleeding, unspecified (principal); R53.83 Other fatigue; Z87.891 Personal history of nicotine dependence
CPT/HCPCS: 36415; 85025; 85610; 85730; 99282